=== PATIENT | male | born 1985 | race Caucasian/White ===

== ENCOUNTER 2021-02-13 09:30 | Emergency (ER) | payer OTHER, SELFPAY ==
[2021-02-13 09:53] VITALS: BP 158/118; PULSE 55; RESP 18; O2SAT 100; BMI 40.1
--- NOTE | 2021-02-13 10:06 | W.ED.ABDPA2 ---
HPI - Abdominal Pain General: Chief Complaint: Abdominal Pain Stated Complaint: Abdominal & Back Pain Time Seen by Provider: 02/13/21 09:37 History of Present Illness: HPI narrative: Patient is a 35-year-old male who comes to the ED with abdominal pain. Patient says that for the past 2 months he has been dealing with on and off abdominal pain. Pain usually gets worse after he eats or drinks something. This morning he woke up with 7 out of 10 abdominal pain that is located in the epigastric region. The pain radiates to his back. He is currently nauseous. Denies any chest pain, shortness of breath, emesis, bladder or bowel symptoms. Associated Symptoms: Reports nausea; Denies chills, constipation, diarrhea, dysuria, fever(s), hematochezia, hematuria and vomiting Review of Systems Const: Denies: fever(s), chills or fatigue Eyes: Denies: change in vision or eye discomfort ENMT: Denies: throat pain, odynophagia, nasal discharge or nasal congestion Card: Denies: chest pain, palpitations, edema, swelling of feet/ankles, dyspnea on exertion or orthopnea Resp: Denies: dyspnea, productive cough or non-productive cough GI: Reports: abdominal pain and nausea; Denies: vomiting, diarrhea, constipation or hematochezia : Denies: flank pain, difficulty urinating, dysuria or hematuria Musc: Denies: neck pain, back pain or extremity swelling Skin/Breast: Denies: rash or new lesions Neuro: Denies: headache(s), numbness in extremities or weakness in extremities Physical Exam Const: COMMON NORMALS: no acute distress, patient oriented x3 and alert GENERAL APPEARANCE: cooperative and comfortable NUTRITIONAL APPEARANCE: obese HENMT: COMMON NORMALS: normocephalic HEAD & SCALP: normocephalic MOUTH: Normal oral and palatal mucosa present THROAT: posterior oropharynx normal and uvula midline Eye: COMMON NORMALS: Equal, round and reactive pupils present PUPIL: Yes Equal, round and reactive pupils present Neck/C-Spine: COMMON NORMALS: supple GENERAL: Yes normal visual inspection Resp: COMMON NORMALS: normal respiratory effort, No retractions, No use of accessory muscles and clear to auscultation bilaterally AUSCULTATION: clear to auscultation bilaterally Cardio: COMMON NORMALS: regular rate, regular rhythm, S1 normal heart sound present, S2 normal heart sound present, No gallops present (Cardio), No clicks present (Cardio), No murmurs present (Cardio) and Peripheral pulses 2+ throughout RATE: regular rate RHYTHM: regular rhythm HEART SOUNDS: S1 normal heart sound present and S2 normal heart sound present PERIPHERAL PULSES: Peripheral pulses 2+ throughout GI: COMMON NORMALS: Normal to inspection, nondistended, normoactive bowel sounds present, Soft to palpation and no masses INSPECTION: Yes central obesity PALPATION: Yes Soft to palpation and Yes Tenderness to palpation present (GI) Details: other (epigastric region tenderness) : COMMON NORMALS: Yes no CVA tenderness BLADDER/KIDNEY EXAM: Yes no CVA tenderness Back/Pelvis: COMMON NORMALS: no CVA tenderness Extremity: COMMON NORMALS: normal to inspection Neuro: COMMON NORMALS: patient oriented x3 SENSORIUM/ORIENTATION: Yes alert GAIT: Yes Normal gait present Skin: GENERAL SKIN EXAM: dry skin Course Vital Signs: Vital signs: Vital Signs Pulse Rate 55 L 02/13/21 10:07 Respiratory Rate 18 02/13/21 09:53 Blood Pressure 158/118 02/13/21 10:07 Pulse Oximetry 98 02/13/21 10:07 MDM - Abdominal Pain MDM Narrative: Medical decision making narrative: Patient is a 35-year-old male comes to the ED with abdominal pain. Patient's pain is in the upper abdomen specifically in the epigastric region. Pain gets worse after eating. Patient appears nontoxic and in no acute distress. Exam shows some epigastric tenderness the rest of exam is benign. Vitals are stable. Labs were unremarkable. CT of abdomen pelvis showed no acute findings seen. Patient was given IV fluids, Zofran and morphine his symptoms improved he was also given a GI cocktail as well which helped his symptoms. Patient was diagnosed with gastritis and discharged home with famotidine, Zofran and hydrocodone for pain. Patient was told to follow-up with PCP in 7 to 10 days for reevaluation. Return to ED precautions given. Patient understood and agreed with plan. Lab Data: Attestation: I reviewed the patient's lab results. Labs: Lab Results 02/13/21 02/13/21 02/13/21 10:29 10:29 10:29 WBC 7.5 10^3/uL 10^3/ uL (4.0-10.0) RBC 5.30 10^6/uL 10^6 /uL (4.1-5.3) Hgb 16.2 g/dL g/dL (11.7-16.6) Hct 47.6 % % (42.0-52.0) MCV 89.8 fl fl (80-94) MCH 30.6 pg pg (28.0-34.0) MCHC 34.0 g/dL g/dL (30.0-36.0) RDW 12.1 % % (12.1-15.1) Plt Count 181 10^3/cmm 10^3 /cmm (130-400) MPV 12.6 fL H fL (7.4-10.4) Neut % (Auto) 47.6 % % Lymph % (Auto) 41.8 % % [place] % (Auto) 8.4 % % Eos % (Auto) 1.6 % % Baso % (Auto) 0.5 % % Neut # (Auto) 3.55 10^3/uL 10^3 /uL (1.8-7.7) Lymph # (Auto) 3.1 10^3/uL 10^3/ uL (0.8-4.8) [place] # (Auto) 0.6 10^3/uL 10^3/ uL (0.2-0.9) Eos # (Auto) 0.1 10^3/uL 10^3/ uL (0.0-0.8) Baso # (Auto) 0.0 10^3/uL 10^3/ uL (0.0-0.1) Nucleated RBC % (a uto) 0 % % Nucleated RBCs # 0.0 /100WBC /100W BC Sodium 141 mmol/L mmol/L (136-145) Potassium 4.2 mmol/L mmol/L (3.5-5.1) Chloride 105 mmol/L mmol/L (98-107) Carbon Dioxide 28 mmol/L mmol/L (22-29) Anion Gap 12.2 (5-19) BUN 13 mg/dL mg/dL (6-20) Creatinine 0.6 mg/dL L mg/dL (0.7-1.2) GFR Calculation 154.2 mL/min H mL /min (90-130) Glucose 104 mg/dL mg/dL (65-115) Calculated Osmolal ity 292 mOsm/kg mOsm/ kg (285-295) Calcium 9.2 mg/dL mg/dL (8.5-10.5) Total Bilirubin 0.3 mg/dL mg/dL (0.15-1.2) AST 17 U/L U/L (0-40) ALT 27 U/L U/L (0-41) Alkaline Phosphata se 63 IU/L IU/L (40-130) Total Protein 6.8 g/dL g/dL (6.6-8.7) Albumin 4.3 g/dL g/dL (3.5-5.2) Globulin 2.5 g/dL g/dL (1.3-4.6) Lipase 28 U/L U/L (13-60) H. pylori IgG Anti body Negative (Negative) Imaging Data ^: CT Abd/Pel: Attestation: I personally reviewed and interpreted this imaging study as follows: Radiologist's impression: [place] [address] CT Scan Report Signed Patient: Santos Patel Unit #: [id number] : 1985 Age/Sex: 35 / M ADM Date: 02/13/21 Loc: ER Room/Bed: Attending Dr: Ordering Provider/Ordering MD: Braxton Alejandra Date of Service: 02/13/21 Procedure(s): CT abdomen pelvis w con* [id number] Accession Number(s): [id number] Report Number: [id number] PROCEDURE INFORMATION: Exam: CT Abdomen And Pelvis With Contrast Exam date and time: 02/13/2021 10:06 AM Age: 35 years old Clinical indication: Abdominal pain; Epigastric; Additional info: Epigastric pain that radiates to the back, nausea TECHNIQUE: Imaging protocol: Computed tomography of the abdomen and pelvis with contrast. Radiation optimization: All CT scans at this facility use at least one of these dose optimization techniques: automated exposure control; mA and/or kV adjustment per patient size (includes targeted exams where dose is matched to clinical indication); or iterative reconstruction. Contrast material: [id number]; Contrast volume: 95 ml; Contrast route: INTRAVENOUS (IV); COMPARISON: No relevant prior studies available. RADIATION DOSE METRICS: Total DLP (mGy-cm): 1857.51 FINDINGS: Liver: Normal. No mass. Gallbladder and bile ducts: Normal. No calcified stones. No ductal dilation. Pancreas: Normal. No ductal dilation. Spleen: Normal. No splenomegaly. Adrenal glands: Normal. No mass. Kidneys and ureters: Normal. No hydronephrosis. Stomach and bowel: Unremarkable. No obstruction. No mucosal thickening. Appendix: Normal appendix. Intraperitoneal space: Unremarkable. No free air. No significant fluid collection. Vasculature: One or more calcified pelvic phleboliths. Retroaortic left renal vein which is a normal variant. Lymph nodes: Unremarkable. No enlarged lymph nodes. Urinary bladder: Unremarkable as visualized. Reproductive: Unremarkable as visualized. Bones/joints: Unremarkable. No acute fracture. Soft tissues: Unremarkable. CT/CT abdomen pelvis w con* [id number] IMPRESSION: 1. Radiographically normal pancreas which does not rule out clinical pancreatitis. 2. No acute findings. Radiation Dose CTDIVOL = (mGy): DLP = 1857.51 (mGy-cm) Dictated By: Epifanio White MD Signed By: Epifanio White MD Signed Date/Time: 02/13/21 1131 DD/ 1130 Discharge Plan Discharge Patient Disposition: Home Clinical Impression: Gastritis Qualifiers: Gastritis type: unspecified gastritis Chronicity: acute Gastritis bleeding: without bleeding Qualified Code(s): K29.00 - Acute gastritis without bleeding Condition: Stable Prescriptions: New [employer] (famotidine) 20 mg tablet 20 mg PO BID Qty: 30 RF: 0 ondansetron 4 mg tablet,disintegrating 4 mg PO Q8H PRN (Reason: nausea and vomiting) Qty: 15 RF: 0 Discharge Orders: Discharge ED (Routine); Ordered 02/13/21 Ordered By: Braxton Alejandra Discharge Diet: Advance as tolerated Discharge Activity: Resume usual activity Patient Instructions: Gastritis (DC), Opioid Safety Activity Restrictions/Additional Instructions: Follow-up with medical provider as directed in 5 to 7 days for reevaluation. Take medications as prescribed. Return to the ER or your medical provider if condition worsens. Please read and understand discharge instructions. Thank you for choosing [facility] for your healthcare needs today. Please realize this is an emergency room and that we are providing you with a medical screening exam and this may not be complete and all inclusive of all the testing and or work up that you may need to determine your ailment or severity of your illness. It is very important that you follow up as instructed or that you return to the Emergency Department should you have concerns or if your condition changes or worsens in any way. 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
[2021-02-13 10:07] VITALS: BP 158/118; PULSE 55; O2SAT 98
[2021-02-13] MEDS: sodium chloride 0.9% 1,000 ML 999 ML IV (10:27)
[2021-02-13] MEDS: ondansetron 2 mg/ML SDV 2 mL 4 MG IVP (10:27)
[2021-02-13] MEDS: morphine 4 mg/mL SDV 1 mL IVP (10:27)
[2021-02-13 10:40] LABS: Basophils % 0.5 %; Eosinophils # 0.1 10^3/uL (0.0-0.8); Eosinophils % 1.6 %; Hematocrit 47.6 % (42.0-52.0); Hemoglobin 16.2 g/dL (11.7-16.6); Lymphocytes # 3.1 10^3/uL (0.8-4.8); Lymphocytes % 41.8 %; Mean Corpuscular Hemoglobin 30.6 pg (28.0-34.0); Mean Corpuscular Volume 89.8 fl (80-94); Mean Platelet Volume 12.6 fL (7.4-10.4); Monocytes # 0.6 10^3/uL (0.2-0.9); Monocytes % 8.4 %; Neutrophils # 3.55 10^3/uL (1.8-7.7); Neutrophils % 47.6 %; Nucleated Red Blood Cells % 0 %; Platelet Count 181 10^3/cmm (130-400); Red Cell Distribution Width 12.1 % (12.1-15.1); White Blood Count 7.5 10^3/uL (4.0-10.0)
[2021-02-13] MEDS: iohexol 300 mg/mL 100 mL Btl IV (10:44)
[2021-02-13 10:55] LABS: Alanine Aminotransferase 27 U/L (0-41); Albumin Level 4.3 g/dL (3.5-5.2); Alkaline Phosphatase 63 IU/L (40-130); Anion Gap 12.2 (5-19); Aspartate Amino Transferase 17 U/L (0-40); Blood Urea Nitrogen 13 mg/dL (6-20); Calcium 9.2 mg/dL (8.5-10.5); Carbon Dioxide 28 mmol/L (22-29); Chloride 105 mmol/L (98-107); Globulin 2.5 g/dL (1.3-4.6); Glomerular Filtration Rate 154.2 mL/min (90-130); Glucose 104 mg/dL (65-115); Lipase 28 U/L (13-60); Osmolality Calculated 292 mOsm/kg (285-295); Potassium 4.2 mmol/L (3.5-5.1); Sodium 141 mmol/L (136-145); Total Bilirubin 0.3 mg/dL (0.15-1.2); Total Protein 6.8 g/dL (6.6-8.7)
[2021-02-13 11:02] LABS: H. Pylori IgG Antibody Negative (Negative)
[2021-02-13] MEDS: lidocaine 2% viscous 15 ML, aluminum-mag hydrox-simethicon 30 ML, sucralfate oral liq 1 GM PO (11:49)
== END 2021-02-13 12:50 | disposition home or self-care (01) ==
PROVIDERS: Emergency Provider Physician Assistant
DX: K29.00 Acute gastritis without bleeding (principal)
CPT/HCPCS: 36415; 74177; 80053; 83690; 85025; 86677; 87040; 96361; 96374; 96375; 99283; J2270; J2405; J7030; Q9967